=== PATIENT | female | born 1965 | race Caucasian/White ===

== ENCOUNTER 2021-07-10 15:54 | Emergency (ER) | payer OTHER, SELFPAY ==
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
[2021-07-10 18:22] VITALS: TEMP 97.9
[2021-07-10 18:24] VITALS: BP 120/90; O2SAT 99
== END 2021-07-10 16:20 | disposition home or self-care (01) ==
LOC: ER 15:54
DX: Z04.1 Encounter for examination and observation following transport accident (principal); F41.9 Anxiety disorder, unspecified; G89.29 Other chronic pain; F17.210 Nicotine dependence, cigarettes, uncomplicated; V48.6XXA Car passenger injured in noncollision transport accident in traffic accident, initial encounter; Y92.414 Local residential or business street as the place of occurrence of the external cause
CPT/HCPCS: 99284

== ENCOUNTER 2021-08-15 14:46 | Emergency (ER) | payer OTHER, SELFPAY ==
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
[2021-08-15 17:18] VITALS: BP 143/104; TEMP 98.9; O2SAT 96
== END 2021-08-15 17:04 | disposition home or self-care (01) ==
LOC: ER 14:46
DX: R06.02 Shortness of breath (principal); R07.9 Chest pain, unspecified; F41.9 Anxiety disorder, unspecified; V89.2XXA Person injured in unspecified motor-vehicle accident, traffic, initial encounter; Z85.819 Personal history of malignant neoplasm of unspecified site of lip, oral cavity, and pharynx
CPT/HCPCS: 99281